=== PATIENT | female | born 1980 | race Caucasian/White ===

== ENCOUNTER 2020-12-25 14:15 | Emergency (ER) | payer OTHER ==
[~2020-12-25] VITALS: Ht 142.2 cm; Wt 67.1 kg
[2020-12-25] MEDS ORDERED: IBUPROFEN 800800 M1 PO (16:38)
[2020-12-25] MEDS ORDERED: FLEXERIL PO (16:38)
[2020-12-25 17:00] VITALS: BP 128/99
== END 2020-12-25 17:01 | disposition home or self-care (01) ==
LOC: M.ERS 14:15
DX: S01.01XA Laceration without foreign body of scalp, initial encounter (principal); W18.2XXA Fall in (into) shower or empty bathtub, initial encounter; Y93.89 Activity, other specified; Y92.89 Other specified places as the place of occurrence of the external cause; Y99.8 Other external cause status

== ENCOUNTER 2021-01-02 12:44 | Emergency (ER) | payer OTHER ==
[~2021-01-02] VITALS: Ht 132.1 cm; Wt 59.4 kg
[~2021-01-02 12:44] MED LIST: FLEXERIL PO; IBUPROFEN 800800 M1 PO
[2021-01-02 13:08] VITALS: BP 124/85
== END 2021-01-02 13:40 | disposition home or self-care (01) ==
LOC: M.ERS 12:44
DX: S01.01XD Laceration without foreign body of scalp, subsequent encounter (principal); Z79.899 Other long term (current) drug therapy; X58.XXXD Exposure to other specified factors, subsequent encounter